=== PATIENT | male | born 1980 | race African-American/Black ===

== ENCOUNTER 2017-01-28 20:26 | Emergency (ER) | payer MEDICAID, SELFPAY ==
[2017-01-28] MEDS ORDERED: Lisinopril 10 MG TAB ONE (20:56)
[2017-01-28] MEDS ORDERED: Hydrochlorothiazide 25 MG TAB ONE (20:56)
== END 2017-01-28 21:25 ==
LOC: MADERS 20:26
DX: I10 Essential (primary) hypertension (principal); F17.200 Nicotine dependence, unspecified, uncomplicated
CPT/HCPCS: 99284